=== PATIENT | female | born 1990 | race Two or more races ===

== ENCOUNTER 2020-11-28 19:50 | Emergency (ER) | payer BC, OTHER ==
[~2020-11-28] VITALS: Ht 160 cm; Wt 76.2 kg
[2020-11-28 20:05] VITALS: BP 136/80
== END 2020-11-28 23:56 | disposition left against medical advice (07) ==
LOC: ER 19:56
DX: M25.571 Pain in right ankle and joints of right foot (principal); Z53.21 Procedure and treatment not carried out due to patient leaving prior to being seen by health care provider; W19.XXXA Unspecified fall, initial encounter; Y93.89 Activity, other specified; Y92.89 Other specified places as the place of occurrence of the external cause; Y99.8 Other external cause status
CPT/HCPCS: 73600